=== PATIENT | female | born 1985 | race Caucasian/White ===

== ENCOUNTER → 2023-10-09 | Outpatient (CLI) | payer MEDICAID | END | disposition home or self-care (01) | LOC: MRI 08:58 | PROVIDERS: ATTEND General Practice | DX: M47.26 Other spondylosis with radiculopathy, lumbar region (principal); M51.16 Intervertebral disc disorders with radiculopathy, lumbar region; M48.061 Spinal stenosis, lumbar region without neurogenic claudication; M25.78 Osteophyte, vertebrae; M54.89 Other dorsalgia | CPT/HCPCS: 72148 ==